=== PATIENT | female | born 1960 | race Caucasian/White ===

== ENCOUNTER → 2018-05-05 | Outpatient (CLI) | payer OTHER ==
[~2018-05-05] VITALS: Ht 154.9 cm; Wt 89.8 kg
[~2018-05-05] MED LIST: ARIMIDEX PO; EFFEXOR XR37.5 MG PO; MAXZIDE-25 MG1 EACH PO; REQUIP4 MG PO; SYNTHROID125 MC1 PO
[2018-05-05 11:48] LABS: HEMATOCRIT 38.6 % (37.0-47.0); HEMOGLOBIN 12.9 gm/dL (12.0-15.0); MCH 30.7 pg (26.0-34.0); MCHC 33.5 g/dL (28.0-37.0); MCV 91.7 fL (80.0-100.0); MPV 10.5 fl. (7.2-11.1); RBC 4.21 mil/uL (4.20-5.00); RDW-CV 15.1 % (10.5-14.5); WBC 5.5 thou/uL (4.0-11.0)
[2018-05-05 11:52] VITALS: BP 128/71; BP 132/69
[2018-05-05 11:59] LABS: APTT 26.7 Seconds (25.0-31.3)
[2018-05-05 13:45] VITALS: BP 110/82
[2018-05-05 14:00] VITALS: BP 122/72
[2018-05-05 14:13] VITALS: BP 136/72
== END | disposition home or self-care (01) ==
LOC: M.INT 04-16 13:00
PROVIDERS: Radiology Diagnostic Radiology
DX: Z45.2 Encounter for adjustment and management of vascular access device (principal); Z85.3 Personal history of malignant neoplasm of breast; Z91.040 Latex allergy status; Z79.899 Other long term (current) drug therapy; Z90.13 Acquired absence of bilateral breasts and nipples; Z98.890 Other specified postprocedural states; Z98.51 Tubal ligation status; Z79.01 Long term (current) use of anticoagulants